=== PATIENT | male | born 1985 | race Caucasian/White ===

== ENCOUNTER 2016-10-13 12:56 | Emergency (ER) | payer SELFPAY ==
[2016-10-13 13:10] VITALS: BP 137/67
--- NOTE | 2016-10-13 13:24 | ERNOTE ---
Medical Problem HPI - Narrative Date of Service: 10/13/16 - General Chief Complaint: General Assessment Time Seen by Provider: 10/13/16 13:24 Source: patient Exam Limitations: no limitations - Immun/Allergies/Home Medications Immunizations: IMMUNIZATION HX History of Influenza Vaccine Yes Hx Pneumococcal Vaccination Yes Allergies/Adverse Reactions: Allergies No Known Allergies Allergy (Verified 10/13/16 13:10) Home Medications: HOME MEDICATIONS Hydrocodone/Acetaminophen [[place]ow 5-325 Tablet] 1 each PO Q6H PRN #10 tablet 01/24 [Last Taken Unknown] Penicillin V Potassium [Pen-Vee K] 500 mg PO QID #40 tab 10/13/16 [Last Taken Unknown] - History of Present History Narrative: Pt has had sore throat, cough and subjective fever intermittently for the past 3 days. He is also c/o mid to lower back pain. Timing: constant Severity: moderate Modifying Factors - (Worsens): Present: eating Review of Systems - Review of Systems Constitutional: Present: no symptoms reported EYE: Present: no symptoms reported ENT: Present: sore throat Respiratory: Present: no symptoms reported, cough Cardiology: Present: no symptoms reported Gastrointestinal/Abdominal: Present: no symptoms reported Genitourinary: Present: no symptoms reported Musculoskeletal: Present: back pain Skin: Present: no symptoms reported Neurological: Present: no symptoms reported Endocrine: Present: no symptoms reported Hematologic/Lymphatic: Present: no symptoms reported Psych: Present: no symptoms reported All Other Systems: All systems neg except as marked - Patient's Past Medical History Patient History - Medical: No pertinent hx Patient History - Cancer: No Hx of Cancer Patient History - Surgical Procedures: Vasectomy - Social History Living Situations: home Alcohol Use: none Drug Use: none Physical Exam - Physical Exam General Appearance: Present: alert, mild distress Eye Exam: Normal inspection: bilateral Ears, Nose, Throat: Present: pharyngeal erythema Neck: Present: normal inspection Respiratory: Present: no respiratory distress, lungs clear Cardiovascular/Chest: Present: regular rate, rhythm Back Exam: Present: normal inspection Extremity Exam: Present: normal inspection Neurological Exam: Present: alert, oriented Skin Exam: Present: normal color ED Progress - Results and Orders Patient's Lab Results:: I have reviewed the patient's lab results. - Vital Signs Patient's Vital Signs:: I have reviewed the patient's vital signs. Vital Signs: Vital Signs 10/13/16 13:05 Temperature 102.6 C H Pulse Rate 128 H Respiratory 12 Rate Blood Pressure 137/67 O2 Sat by Pulse 100 Oximetry - Progress/Reassessment Chief Complaint: General Assessment Departure - Departure Clinical Impression: Strep pharyngitis Disposition: Home self-care Condition: Fair Instructions: Form - Return To Work Prescriptions: Hydrocodone/Acetaminophen [[place] 5-325 Tablet] 1 each PO Q6H PRN #10 tablet PRN Reason: Analgesia Penicillin V Potassium [Pen-Vee K] 500 mg PO QID #40 tab
[2016-10-13 13:35] LABS: Urine Bilirubin Negative (NEGATIVE); Urine Blood Negative /ul (NEGATIVE); Urine Ketone 50 mg/dL (NEGATIVE); Urine Nitrite Negative (NEGATIVE); Urine Protein Negative (NEGATIVE); Urine Urobilinogen Normal (NORMAL)
[2016-10-13 13:53] LABS: Urine Appearance Clear; Urine Color Yellow; Urine RBC 0-5 /hpf (0-5); Urine WBC None Seen /hpf (0-5)
[2016-10-13 13:54] LABS: Urine Bacteria None Seen; Urine Mucus Few - 1+
== END 2016-10-13 13:59 | disposition home or self-care (01) ==
LOC: ER 12:56
DX: J02.0 Streptococcal pharyngitis (principal)